=== PATIENT | female | born 1980 | race Two or more races ===

== ENCOUNTER 2023-09-07 22:35 | Emergency (ER) | payer MEDICAID ==
[~2023-09-07] VITALS: Ht 154.9 cm; Wt 59.0 kg
[2023-09-07 22:48] VITALS: BP 122/74; PULSE 65; RESP 20; TEMP 98.4
[2023-09-08] MEDS ORDERED: OSEL75 PO (00:13)
== END 2023-09-08 00:25 | disposition home or self-care (01) ==
LOC: EMS 22:35
DX: R04.0 Epistaxis (principal); J11.1 Influenza due to unidentified influenza virus with other respiratory manifestations
CPT/HCPCS: 99283; Z7502